=== PATIENT | female | born 1940 | race Caucasian/White ===

== ENCOUNTER 2017-07-24 23:56 | Emergency (ER) | payer MEDICARE, BC ==
[~2017-07-24] VITALS: Ht 172.7 cm; Wt 59.0 kg
[~2017-07-24 23:56] MED LIST: CLINDAMYCIN HC300 MG ORAL
[2017-07-24 23:59] VITALS: BP 123/74
[2017-07-25] MEDS ORDERED: Acetaminophen 500mg (ES) tab ORAL ONE (00:15)
--- NOTE | 2017-07-25 00:15 | Emergency Room Report ---
History of Present Illness General Chief Complaint: Multiple Trauma/Fall Source: Patient Present Illness HPI Is a 76-year-old female with a history of breast cancer. She also has a history of allergy and sinus congestion. She fell on a stair and hit her head. No loss of consciousness. She sustained a laceration the back of her head. No nausea no vomiting. Complaining of some mild headache. Denies any syncope. Denies any arrhythmia or chest pain or palpitation. Allergies: Coded Allergies: No Known Allergies (Unverified , 05/14/16) Patient History Past Medical History: see triage record, old chart reviewed Past Surgical History: other Pertinent Family History: none Social History: Denies: smoking Now: No Immunizations: other Reviewed Nursing Documentation: PMH: Agreed, PSxH: Agreed Nursing Documentation-PMH Hx Cardiac Problems: Yes - HIGH CHOLESTEROL Hx Neurological Problems: Yes - VERTIGO Review of Systems Eye: Denies: eye pain, blurred vision ENT: Denies: ear pain, nose congestion, throat swelling Respiratory: Denies: cough, shortness of breath Cardiovascular: Denies: chest pain, palpitations Gastrointestinal: Denies: abdominal pain, diarrhea, nausea, vomiting Musculoskeletal: Denies: back pain, joint pain Skin: Denies: rash Neurological: Denies: headache, numbness Endocrine: Denies: increased thirst, increased urine Hematologic/Lymphatic: Denies: easy bruising All Other Systems: negative except mentioned in HPI Physical Exam Vital Signs Date Time Temp Pulse Resp B/P (MAP) Pulse Ox O2 Delivery O2 Flow Rate FiO2 07/24/17 23:44 97.5 95 16 123/74 99 Room Air vitals normal Sp02 EP Interpretation: reviewed, normal General Appearance: well appearing, no apparent distress, alert Head: normocephalic, other - 8 cm vertical laceration to the occiput. No foreign body Eyes: bilateral eye PERRL, bilateral eye EOMI ENT: hearing grossly normal, normal pharynx Neck: full range of motion, supple, no meningismus Respiratory: chest non-tender, lungs clear, normal breath sounds Cardiovascular #1: regular rate, rhythm, no murmur Gastrointestinal: normal bowel sounds, non tender, no mass, no organomegaly, no bruit, non-distended Musculoskeletal: back normal, gait/station normal, normal range of motion Neurologic: alert, oriented x3 Psychiatric: mood/affect normal Skin: warm/dry Procedures Laceration/Wound Repair Laceration/Wound Repair : Consent: Verbal Wound Location: head Wound's Depth, Shape: into muscle, linear, contused tissue Wound Length (cm): 8 Wound Explored: clean Irrigated w/ Saline (ccs): 1000 Anesthesia: 1% Lidocaine Volume Anesthetic (ccs): 8 Wound Repaired With: ragini Number of Sutures: 10 Patient Tolerated: Well Complications: None Progress I placed 10 ragini. She tolerated procedure without a problem. Medical Decision Making Diagnostic Impression: Primary Impression: Head injury, acute Qualified Codes: S09.90XA - Unspecified injury of head, initial encounter Additional Impression: Occipital scalp laceration Qualified Codes: S01.01XA - Laceration without foreign body of scalp, initial encounter ER Course She presents with a head injury from a fall. She has a laceration. Low risk for delayed bleeding. She's not on any blood thinner or aspirin. We'll discharge him. CT/MRI/US Diagnostic Results CT/MRI/US Diagnostic Results : Imaging Test Ordered: CT head Impression no intracranial bleed or skull fracture. Read by radiologist. Last Vital Signs Date Time Temp Pulse Resp B/P (MAP) Pulse Ox O2 Delivery O2 Flow Rate FiO2 07/24/17 23:44 97.5 95 16 123/74 99 Room Air Status: improved Disposition: HOME, SELF-CARE Condition: Stable Additional Instructions: Did not take aspirin for a week. Followup with your DrReggie in 5-7 days for staple removal. Return if symptom worsen. PHYLLIS MCKEON M.D. Jul 25, 2017 00:15
[2017-07-25 01:28] VITALS: BP 120/76
[2017-07-25 01:30] VITALS: BP 120/76
--- NOTE | 2017-07-25 08:44 | Diagnostic Imaging Report ---
Indication: Fall Technique: Continuous helical CT scanning of the head was performed utilizing automated exposure control without intravenous contrast material. Axial and coronal reconstructions were obtained. Comparison: None CT dose: Total DLP 1411.27 mGycm; CTDI vol 70.38 mGy Findings: There is no acute intracranial hemorrhage, mass effect or cortical edema. The ventricles, cisterns and sulci are mildly prominent consistent with age-related atrophy. Mild periventrical hypoattenuation is seen, a nonspecific finding likely related to sequela of chronic microvascular ischemia. The posterior fossa and fourth ventricle are unremarkable. Visualized mastoid air cells and paranasal sinuses are unremarkable. There is posterior extracranial soft tissue swelling/hematoma and laceration. No associated skull fracture. Atherosclerotic calcifications noted within the cavernous portions of the bilateral internal carotid arteries. Impression: Posterior extracranial soft tissue swelling/hematoma and laceration. Correlate with physical exam. No skull fracture. No evidence of acute intracranial hemorrhage, mass effect or cortical edema. Additional findings as above. This corresponds with the statrad preliminary report. The CT scanner at [facility] is accredited by the [employer] and the scans are performed using protocols designed to limit radiation exposure to as low as reasonably achievable to attain images of sufficient resolution adequate for diagnostic evaluation.
== END 2017-07-25 01:30 | disposition home or self-care (01) ==
LOC: EDBD 23:56 → EMR 07-25 00:26
DX: S01.01XA Laceration without foreign body of scalp, initial encounter (principal); W10.9XXA Fall (on) (from) unspecified stairs and steps, initial encounter; Y92.9 Unspecified place or not applicable; Z85.3 Personal history of malignant neoplasm of breast
CPT/HCPCS: 70450; 99284

== ENCOUNTER 2017-07-30 13:07 | Emergency (ER) | payer MEDICARE, BC ==
[~2017-07-30] VITALS: Ht 160 cm; Wt 56.7 kg
[2017-07-30] MEDS ORDERED: BACITRACIN-P28.35 GM TP (13:41)
--- NOTE | 2017-07-30 13:41 | Emergency Room Report ---
History of Present Illness General Chief Complaint: Wound Recheck/Suture Removal Present Illness HPI 76 YO Female presents to the ED c/o having ragini in the posterior scalp x 1 week that need to be removed s/p wound closure 1 week ago. Patient denies bleeding, tenderness, discharge. Patient states she has been shampooing her hair daily and has not experienced discomfort. Denies fevers or chills. Denies dizziness or headache Allergies: Coded Allergies: No Known Allergies (Unverified , 05/14/16) Patient History Past Medical History: see triage record Past Surgical History: none Pertinent Family History: none Reviewed Nursing Documentation: PMH: Agreed, PSxH: Agreed Nursing Documentation-PMH Hx Cardiac Problems: Yes - HIGH CHOLESTEROL Hx Neurological Problems: Yes - VERTIGO Review of Systems All Other Systems: negative except mentioned in HPI Physical Exam Vital Signs Date Time Temp Pulse Resp B/P (MAP) Pulse Ox O2 Delivery O2 Flow Rate FiO2 07/30/17 13:19 97.9 108 20 114/66 99 Room Air Sp02 EP Interpretation: reviewed, normal General Appearance: no apparent distress, alert, GCS 15, non-toxic Head: normocephalic ENT: hearing grossly normal, normal voice Neck: full range of motion Respiratory: lungs clear, normal breath sounds, speaking full sentences Cardiovascular #1: regular rate, rhythm Musculoskeletal: back normal, gait/station normal, normal range of motion Neurologic: alert, oriented x3, responsive, normal gait, speech normal, grossly normal Skin: normal color, no rash, warm/dry, well hydrated, wd healing/no infection noted - posterior scalp with ragini in place Medical Decision Making PA Attestation Dr. Lnid is my supervising Physician whom patient management has been discussed with. Diagnostic Impression: Primary Impression: Encounter for removal of sutures ER Course 76 YO Female presents to the ED c/o having argini in the posterior scalp x 1 week that need to be removed s/p wound closure 1 week ago. Patient denies bleeding, tenderness, discharge. Patient states she has been shampooing her hair daily and has not experienced discomfort. Denies fevers or chills. Denies dizziness or headache Ddx considered but are not limited to laceration, tendon injury, cellulitis, dehiscence. Vital signs: are WNL, pt. is afebrile H&PE are most consistent with: healed laceration of the posterior scalp. ORDERS: none required at this time, the diagnosis is clinical ED INTERVENTIONS: - 8 ragini removed without complication DISCHARGE: At this time pt. is stable for d/c to home. Will provide printed patient care instructions, and any necessary prescriptions. Care plan and follow up instructions have been discussed with the patient prior to discharge. Last Vital Signs Date Time Temp Pulse Resp B/P (MAP) Pulse Ox O2 Delivery O2 Flow Rate FiO2 07/30/17 13:19 97.9 108 20 114/66 99 Room Air Disposition: HOME, SELF-CARE Condition: Stable Scripts Bacitracin/Polymyxin B Sulfate (BACITRACIN-POLYMYXIN OINTMENT) 28.35 Gm Oint...g. 1 APPLIC TP BID, #28.3 GM Prov: Evon Reynoso 07/30/17 Patient Instructions: Suture Removal, Care After Additional Instructions: Take medications as directed. Follow up with a Primary Care Provider in 3-5 days, even if your symptoms have resolved. --Please review list of primary care clinics, if you do not already have a primary care provider Return sooner to ED if new symptoms occur, or current symptoms become worse. - Please note that this Emergency Department Report was dictated using [employer] helper technology software, occasionally this can lead to erroneous entry secondary to interpretation by the dictation equipment. Evon Reynoso Jul 30, 2017 13:41
[2017-07-30 13:42] VITALS: BP 114/66
[2017-07-30 14:10] VITALS: BP 114/66
== END 2017-07-30 14:12 | disposition home or self-care (01) ==
LOC: EMR 13:53
DX: Z48.02 Encounter for removal of sutures (principal); E78.00 Pure hypercholesterolemia, unspecified; R42 Dizziness and giddiness
CPT/HCPCS: 99283